=== PATIENT | female | born 1980 | race Caucasian/White ===

== ENCOUNTER 2018-02-12 17:07 | Emergency (ER) | payer OTHER, MEDICAID ==
[~2018-02-12] VITALS: Ht 175.3 cm; Wt 90.0 kg
[2018-02-12 17:30] VITALS: PULSE 56; RESP 16; TEMP 98; O2SAT 100
[2018-02-12] MEDS ORDERED: LEVO137T2 PO (21:44)
[2018-02-12] MEDS ORDERED: KETOROLAC TROMETHAMINE 60 MG/2 ML (IM) VIAL IM ONE (21:45)
[2018-02-12] MEDS ORDERED: ORPHENADRINE INJ 60 MG/2 ML AMP IM ONE (21:45)
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
[2018-02-12] MEDS ORDERED: ROBA500T PO (22:49)
[2018-02-12] MEDS ORDERED: IBUP1TAB7 PO (22:49)
== END 2018-02-12 23:24 | disposition home or self-care (01) ==
LOC: NEPC 17:07
DX: S13.4XXA Sprain of ligaments of cervical spine, initial encounter (principal); M54.5 Low back pain; S90.31XA Contusion of right foot, initial encounter; E03.9 Hypothyroidism, unspecified; V43.52XA Car driver injured in collision with other type car in traffic accident, initial encounter
CPT/HCPCS: 72125; 72128; 72131; 73630; 96372; 99284; J1885; J2360